=== PATIENT | female | born 1980 | race Caucasian/White ===

== ENCOUNTER 2017-09-28 10:19 | Emergency (ER) | payer OTHER ==
[~2017-09-28] VITALS: Ht 167.6 cm; Wt 49.9 kg
[2017-09-28 11:11] VITALS: BP 98/76
== END 2017-09-28 11:11 | disposition home or self-care (01) ==
LOC: M.ERS 10:19
DX: S63.610A Unspecified sprain of right index finger, initial encounter (principal); S63.612A Unspecified sprain of right middle finger, initial encounter; F17.210 Nicotine dependence, cigarettes, uncomplicated; X58.XXXA Exposure to other specified factors, initial encounter; Y93.89 Activity, other specified; Y92.89 Other specified places as the place of occurrence of the external cause; Y99.8 Other external cause status